=== PATIENT | female | born 1955 | race Caucasian/White ===

== ENCOUNTER → 2019-04-25 | Outpatient (CLI) | payer BC ==
--- NOTE | 2019-04-25 12:38 | PCVCIMAG ---
APPROVED REPORT Study performed: 04/25/2019 11:29:19 EXAM: Comprehensive 2D, Doppler, and color-flow Echocardiogram Patient Location: Echo lab Room #: 3Status: routine BSA: 1.76 HR: 62 bpmBP: 156/90 mmHg Rhythm: NSR Other Information Study Quality: Good Risk Factors: Cardiac Risk Factors: HTN, Hyperlipidemia Indications Pre-Op Hx WPW with ablation 2D Dimensions IVSd: 7.66 (7-11mm)LVOT Diam: 20.00 (18-24mm) LVDd: 46.03 mm PWd: 7.64 (7-11mm)Ascending Ao: 31.02 (22-36mm) LVDs: 30.95 (25-40mm) Left Atrium: 38.77 (27-40mm) Aortic Root: 29.00 mm LV Single Plane 4CH: 60.68 % LV Single Plane 2CH: 59.05 % Biplane EF: 61.0 % Volumes Left Atrial Volume (Systole) Single Plane 4CH: 42.70 mLSingle Plane 2CH: 35.28 mL LA ESV Index: 23.00 mL/m2 Aortic Valve AoV Peak Tomi.: 1.14 m/s AO Peak Gr.: 5.19 mmHgLVOT Max P.98 mmHg LVOT Max V: 0.86 m/s LISET Vmax: 2.42 cm2 Mitral Valve E/A Ratio: 1.4 MV Decel. Time: 224.64 ms MV E Max Tomi.: 0.83 m/s MV A Tomi.: 0.61 m/s IVRT: 62.28 ms TDI E/Lateral E': 8.30E/Medial E': 9.22 Medial E' Tomi.: 0.09 m/s Lateral E' Tomi.: 0.10 m/s Pulmonary Valve PV Peak Tomi.: 0.80 m/sPV Peak Gr.: 2.55 mmHg [place] End Vmax: 1.10 m/s Pulmonary Vein P Vein S: 0.53 m/sP Vein A: 0.32 m/s P Vein D: 0.33 m/sP Vein A Dur.: 107.3 msec P Vein S/D Ratio: 1.61 Tricuspid Valve TR Peak Tomi.: 2.33 m/sRAP Estimate: 7.00 mmHg TR Peak Gr.: 21.68 mmHg PA Pressure: 29.00 mmHg Left Ventricle The left ventricle is normal size. There is normal LV segmental wall motion. There is normal left ventricular wall thickness. Left ventricular systolic function is normal. The left ventricular ejection fraction is within the normal range. LVEF is 60-65%. The left ventricular diastolic function is normal. Right Ventricle The right ventricle is normal size. The right ventricular systolic function is normal. Atria The left atrium size is normal. The right atrium size is normal. Aortic Valve The aortic valve is normal in structure. No aortic regurgitation is present. There is no aortic valvular stenosis. Mitral Valve The mitral valve is normal in structure. Mild mitral regurgitation. No evidence of mitral valve stenosis. Tricuspid Valve The tricuspid valve is normal in structure. Trace tricuspid regurgitation. Pulmonary artery pressure is 29 mmHg. Pulmonic Valve The pulmonary valve is normal in structure. There is no pulmonic valvular regurgitation. Great Vessels The aortic root is normal in size. IVC is normal in size and collapses >50% with inspiration. Pericardium There is no pericardial effusion. <Conclusion> Left ventricular systolic function is normal. There is normal LV segmental wall motion. LVEF is 60-65%. Normal diastoliic function The aortic valve is normal in structure. No aortic regurgitation or stenosis The mitral valve is normal in structure. Mild mitral regurgitation. Trace tricuspid regurgitation. Pulmonary artery pressure of 30 mmHg. There is no pericardial effusion.
== END | disposition home or self-care (01) ==
LOC: PCVCIMAG 11:03
PROVIDERS: ATTEND Internal Medicine
DX: Z01.818 Encounter for other preprocedural examination (principal); I34.0 Nonrheumatic mitral (valve) insufficiency; I45.6 Pre-excitation syndrome
CPT/HCPCS: 93306